=== PATIENT | male | born 1995 | race Caucasian/White ===

== ENCOUNTER 2018-07-05 11:13 | Emergency (ER) | payer OTHER ==
[2018-07-05 11:41] VITALS: BP 124/80; PULSE 86; TEMP 98.8; BMI 25.7
--- NOTE | 2018-07-05 13:06 | PDOC ---
History of Present Illness - General Chief Complaint: Pain, Acute Stated Complaint: HURT KNEE Time Seen by Provider: 07/05/18 12:03 - History of Present Illness Initial Comments: 23-year-old male without comorbidities presents for evaluation of left knee pain. He states he slipped on the wet floor and twisted his left knee hurt a pop and developed swelling and pain and difficulty bearing weight. He points to the anterior medial aspect of the left knee as the area of his discomfort. 07/05/18 13:03 Past History - Past Medical History Allergies/Adverse Reactions: Allergies Allergy/AdvReac Type Severity Reaction Status Date / Time ibuprofen [From Advil] Allergy Verified 07/05/18 11:38 Home Medications: Ambulatory Orders NK [No Known Home Medication] 07/05/18 COPD: No DVT: No - Immunization History Immunization Up to Date: Yes - Suicide/Smoking/Psychosocial Hx Smoking History: Never smoked Have you smoked in the past 12 months: No Hx Alcohol Use: No Drug/Substance Use Hx: No Review of Systems - Review of Systems Musculoskeletal: Yes: Joint Pain All Other Systems: Reviewed and Negative *Physical Exam - Vital Signs Last Vital Signs Temp Pulse Resp BP Pulse Ox 98.8 F 86 16 124/80 99 07/05/18 11:38 07/05/18 11:38 07/05/18 11:38 07/05/18 11:38 07/05/18 11:38 - Physical Exam Comments: Left knee skin color and temperature are normal there is swelling. There is an appreciable intra-articular effusion. His extensor mechanism is preserved. He is able to do straight leg raise test. He has normal hip range of motion normal ankle range of motion. Knee range of motion 0-85 beyond that causes pain. He has no medial lateral joint line tenderness. No tenderness about the medial lateral condyles of the femur. I am unable to get an accurate Lockman's test. Or anterior drawer. His knee is stable to varus and valgus stress. He has pain about the MP FL. Positive patellar apprehension. Thighs and calves are soft and nontender normal straight leg raise test is neurovascularly intact. 07/05/18 13:03 ED Treatment Course - RADIOLOGY Radiology Studies Ordered: Category Date Time Status KNEE 3 POS-LEFT [RAD] Stat Radiology 07/05/18 12:14 Taken Medical Decision Making - Medical Decision Making X-rays show intra-articular effusion lateral patella's tilt on sunrise view and possibly fluid about the MP FL 07/05/18 13:04 *DC/Admit/Observation/Transfer Diagnosis at time of Disposition: Patellar subluxation - Discharge Dispostion Disposition: HOME Condition at time of disposition: Stable Decision to Admit order: No - Referrals Referrals: Sukhi Lira MD [Staff Physician] - - Patient Instructions Printed Discharge Instructions: DI for Knee Sprain, Knee Sprain Additional Instructions: He may weight-bear as tolerated with use of the knee immobilizer and crutches. Please follow-up with orthopedic surgery in 2-3 days for further evaluation and treatment options. May take Tylenol and Motrin for pain as directed. Return to the emergency room should symptoms worsen or go unresolved. - Post Discharge Activity
== END 2018-07-05 13:10 | disposition home or self-care (01) ==
LOC: JERFT 11:13
PROC: 2W3RXYZ Immobilization of Left Lower Leg using Other Device (ICD-10-PCS; principal; 2018-07-05)
DX: S83.002A Unspecified subluxation of left patella, initial encounter (principal); M25.462 Effusion, left knee; W01.0XXA Fall on same level from slipping, tripping and stumbling without subsequent striking against object, initial encounter; Y93.89 Activity, other specified; Y92.214 College as the place of occurrence of the external cause; Y99.0 Civilian activity done for income or pay
CPT/HCPCS: 73562-TC-LT-FY; 99282-25